=== PATIENT | female | born 2000 | race Caucasian/White ===

== ENCOUNTER → 2019-08-07 07:14 | Outpatient (BNVA) | payer BC, SELFPAY | PROVIDERS: Family Provider Family Medicine; PCP Family Medicine; Visit Provider Psychiatry & Neurology Psychiatry | DX: F32.5 Major depressive disorder, single episode, in full remission (principal); F40.10 Social phobia, unspecified; F44.5 Conversion disorder with seizures or convulsions | CPT/HCPCS: 99213 ==

== ENCOUNTER → 2019-11-29 08:01 | Outpatient (BNVA) | payer BC, SELFPAY | PROVIDERS: Family Provider Family Medicine; PCP Family Medicine; Visit Provider Psychiatry & Neurology Psychiatry | DX: F32.5 Major depressive disorder, single episode, in full remission (principal); F40.10 Social phobia, unspecified; F44.5 Conversion disorder with seizures or convulsions | CPT/HCPCS: 99213 ==

== ENCOUNTER → 2020-02-22 07:25 | Outpatient (BNVA) | payer BC, SELFPAY | PROVIDERS: Family Provider Family Medicine; PCP Family Medicine; Visit Provider Psychiatry & Neurology Psychiatry | DX: F32.5 Major depressive disorder, single episode, in full remission (principal); F44.5 Conversion disorder with seizures or convulsions; F40.10 Social phobia, unspecified | CPT/HCPCS: 99213 ==

== ENCOUNTER → 2020-03-26 11:48 | Outpatient (BNVA) | payer BC, SELFPAY | PROVIDERS: Family Provider Family Medicine; PCP Family Medicine; Visit Provider Specialist | DX: F44.5 Conversion disorder with seizures or convulsions (principal) | CPT/HCPCS: 99215 ==

== ENCOUNTER → 2020-05-15 08:04 | Outpatient (BNVA) | payer BC, SELFPAY | PROVIDERS: Family Provider Family Medicine; PCP Family Medicine; Visit Provider Psychiatry & Neurology Psychiatry | DX: F44.5 Conversion disorder with seizures or convulsions (principal); F40.10 Social phobia, unspecified; F32.5 Major depressive disorder, single episode, in full remission | CPT/HCPCS: 99213 ==

== ENCOUNTER → 2020-08-12 08:07 | Outpatient (BNVA) | payer BC, SELFPAY | PROVIDERS: Family Provider Family Medicine; PCP Family Medicine; Visit Provider Psychiatry & Neurology Psychiatry | DX: F44.5 Conversion disorder with seizures or convulsions (principal); F40.10 Social phobia, unspecified; F32.5 Major depressive disorder, single episode, in full remission | CPT/HCPCS: 99214 ==

== ENCOUNTER 2020-08-13 15:00 | Emergency (ER) | payer BC, SELFPAY ==
[2020-08-13 15:04] VITALS: BP 117/70; PULSE 77; RESP 18; TEMP 35.9; O2SAT 98; BMI 50.3
--- NOTE | 2020-08-13 15:08 | ECG_ITS ---
[facility] Test Date: 2020-08-13 Pat Name: Alecia Gunter Department: Room: Gender: Female Superintendent Pier: : 2000 Requested By: Alfred Salazar Order Number: [id number] Laura MD: JOSE ENRIQUE HERNANDEZ Measurements Intervals [place] Rate: 71 P: 19 RI: 135 QRS: -2 QRSD: 80 T: 13 QT: 390 QTc: 426 Interpretive Statements SINUS RHYTHM WITH MARKED SINUS ARRHYTHMIA LOW QRS VOLTAGE IN PRECORDIAL LEADS [QRS DEFLECTION < 1.0 mV IN CHEST LEADS] Compared to ECG 08/21/2017 01:29:22 Low QRS voltage now present Left-axis deviation no longer present Electronically Signed On 08-13-2020 20:18:35 CDT by JOSE ENRIQUE HERNANDEZ [id number]
--- NOTE | 2020-08-13 15:09 | ED_ITS ---
HPI - Seizure General: Chief Complaint: Seizure Stated Complaint: Seizure/ Hit head Time Seen by Provider: 08/13/20 15:04 Source: patient, family and RN notes reviewed Limitations: no limitations History of Present Illness: HPI Narrative: This patient is a 19-year-old female with a long history of conversion disorder and pseudoseizures presents to the emergency department with complaint of a pseudoseizure. Patient has multiple of these daily. Due to stress and other related issues. Patient and patient's significant other were having a conversation and that she started having a pseudoseizure. Lasted just a few seconds and had no postictal symptoms. Patient has significant other states that he is chronically happening and is on Zoloft for the same. Patient is followed by Dr. Li psychiatry for the same. Patient's had multiple evaluations related to the stop seizures including [facility]. They are chronic in nature and do not appear to be acute. Patient denies any significant stress but appears the patient every time she has a serious conversation will have some type of pseudoseizure activity. Good urine urine drug screen EKG will evaluate further further if needed. This but this does appear just to be related to stress and anxiety issues. Patient has had no loss of consciousness no tonic- clonic movements no bladder incontinence patient actually wishes to get up and go to the bathroom at this time. Onset (ago): day(s) (5) Associated symptoms: Deny chest pain, chills or fever(s) Review of Systems General: Reports: 10 or more systems reviewed and unremarkable except in HPI and below Const: Denies: fever(s) or chills Eyes: Denies: change in vision or blurry vision ENMT: Denies: throat pain, hoarseness or mouth pain Card: Denies: chest pain Resp: Denies: dyspnea, productive cough, non-productive cough, wheezing or pain on inspiration GI: Denies: abdominal pain, nausea or vomiting : Denies: flank pain, difficulty voiding, dysuria, urinary frequency, urinary urgency or urinary hesitancy Musc: Denies: neck pain, back pain, extremity pain, extremity swelling, joint pain, joint swelling, joint redness, joint warmth or limited range of motion Skin/Breast: Denies: rash, pruritus, erythema or skin tenderness Neuro: Reports: seizure-like activity; Denies: headache(s), numbness in extremities or weakness in extremities Psych: Reports: depression; Denies: anxiety PFSH ED PFSH: Medical History Major depressive disorder, single episode, in full remission No pertinent past medical history Denies diabetes, asthma, hypertension, seizures, DVT/PE PCP: Dr. Fiore Surgical History S/P nasal polypectomy Performed [place] [address] Razo in [place] S/P tonsillectomy and adenoidectomy At age 12 [address] De La Torre Family History Grandmother Diabetes maternal Thyroid condition maternal Family/Other Seizure disorder cousins Narcolepsy cousins Denies family history of Colon cancer Ovarian cancer Hyperlipidemia Breast cancer Hypertension Uterine cancer Stroke Social History Smoking and tobacco status: never smoked Alcohol intake: unknown Physical Exam Const: COMMON NORMALS: no acute distress, average body habitus, patient oriented x3, no limitations, healthy appearing, alert and well nourished HENMT: COMMON NORMALS: normocephalic, atraumatic, hearing grossly normal bilaterally, external ears normal, EAC's normal, TM's normal bilaterally, Normal external nose present, Normal nasal mucous membranes and turbinates present, moist oral mucous membranes, oropharynx normal, dentition normal and gingiva normal HEAD & SCALP: normocephalic and atraumatic NOSE: Normal external nose present and Normal nasal mucous membranes and turbinates present EXTERNAL EAR: Yes external ears normal EXTERNAL AUDITORY CANAL: EAC's normal TYMPANIC MEMBRANE: TM's normal bilaterally Neck/C-Spine: COMMON NORMALS: full ROM, no lymphadenopathy, supple, no meningeal signs, no JVD, Thyroid normal and No carotid bruits THYROID: Thyroid normal Chest: COMMONS NORMALS: normal inspection of the chest, normal palpation of entire chest wall, normal inspection of the breasts and normal palpation of the breasts Breast/axilla inspection: Yes normal inspection of the breasts BREAST/AXILLA PALPATION: Yes normal palpation of the breasts Resp: COMMON NORMALS: normal respiratory effort, No retractions, No use of acc essory muscles, clear to auscultation bilaterally and percussion normal AUSCULTATION: clear to auscultation bilaterally PERCUSSION: percussion normal Cardio: COMMON NORMALS: no JVD, regular rate, regular rhythm, S1 normal heart sound present, S2 normal heart sound present, No gallops present (Cardio), No clicks present (Cardio), No murmurs present (Cardio), No rub (Cardio) and Peripheral pulses 2+ throughout RATE: regular rate RHYTHM: regular rhythm HEART SOUNDS: S1 normal heart sound present and S2 normal heart sound present PERIPHERAL PULSES: Peripheral pulses 2+ throughout GI: COMMON NORMALS: Normal to inspection, nondistended, normoactive bowel sounds present, Soft to palpation, non-tender, No hepatosplenomegaly present, no masses and no bruits PALPATION: Yes Soft to palpation and Yes No hepatosplenomegaly present : COMMON NORMALS: Yes no CVA tenderness, Yes normal external appearance, Yes normal appearance of the vagina, Yes normal appearance of the cervix, Yes normal bimanual exam, Yes No adnexal tenderness and Yes no masses BLADDER/KIDNEY EXAM: Yes no CVA tenderness BIMANUAL EXAM - VAGINA & UTERUS: Yes normal bimanual exam Back/Pelvis: COMMON NORMALS: no CVA tenderness, thoracic and lumbar spine normal to inspection, no thoracic nor lumbar tenderness, thoraco-lumbar ROM normal and straight leg raise negative bilaterally Extremity: COMMON NORMALS: normal to inspection, full ROM, capillary refill normal, no joint enlargement, no clubbing, cyanosis or edema, no calf tenderness and no pedal edema Neuro: COMMON NORMALS: patient oriented x3 SENSORIUM/ORIENTATION: Yes alert MENINGEAL SIGNS: Yes no meningeal signs Course Reevaluation(s): Reevaluation #1: Patient is at her mental baseline with no signs of injury. Long history of pseudoseizures. Patient be discharged home with dad is to continue all home medications follow-up with psychiatry as instructed. Time: 15:52 Vital Signs: Vital signs: Vital Signs Temperature 96.7 F L 08/13/20 15:04 Pulse Rate 77 08/13/20 15:04 Respiratory Rate 18 08/13/20 15:04 Blood Pressure 117/70 08/13/20 15:04 Pulse Oximetry 98 08/13/20 15:04 MDM - Seizure Lab Data: Attestation: I reviewed the patient's lab results. Imaging Data^: CT Head: Attestation: I personally reviewed and interpreted this imaging study as follows: Radiologist's impression: Negative for acute findings EKG Data^: EKG 1: Attestation: I personally reviewed and interpreted this EKG as follows: EKG interpretation date: 08/13/20 EKG interpretation time: 15:26 Prior EKG tracings: not available for review Interpretation: Sinus rhythm nonspecific EKG changes heart rate 71 otherwise normal EKG Discharge Plan Discharge Patient Disposition: Home Clinical Impression: Conversion disorder with attacks or seizures Condition: Stable Prescriptions: No Action sertraline [Zoloft] 100 mg tablet 100 mg PO DAILY Qty: 30 RF: 2 Cryselle (28) 0.3-30 mg-mcg tablet 1 tab PO DAILY Qty: 84 RF: 3 Discharge Orders: Discharge ED (Routine); Ordered 08/13/20 Ordered By: Alfred Salazar Referrals: Pa Fiore MD [Primary Care Provider] - Discharge Diet: Advance as tolerated Discharge Activity: Resume usual activity Patient Instructions: Opioid Safety Activity Restrictions/Additional Instructions: Continue all home medications. Follow-up with your primary care physician in your your psychiatrist in 2 to 3 days as needed. Coding Level of Care Code ED Wood Router Hand for Chg Fwd Exam Comprehensive
--- NOTE | 2020-08-13 15:27 | CT_ITS ---
WS: [id number] CT scan of the head, 08/13/2020 Clinical Data: HEADACHE Comparison: CT head, 08/21/2017. DLP: 809.[address] scans at [facility] use at least one of these dose optimization techniques: automat ed exposure control; mA and/or kV adjustment per patient size (includes targeted exams where dose is matched to clinical indication); or iterative reconstruction. Findings: The ventricular system is normal without shift. No recent infarct or hemorrhage is seen. There are no abnormal intracerebral masses. The cerebellum and brainstem are not remarkable. Bony windows of the skull and skull base show no fractures or erosions. The mastoid air cells, international bank manager al auditory canals, sella turcica, intraorbital contents, and paranasal sinuses are unremarkable. CT/CT head wo con* [id number] Impression: Negative CT scan of the head
[2020-08-13 15:55] LABS: HCG Qualitative Urine. Negative (Negative)
[2020-08-13 16:12] VITALS: BP 112/68; PULSE 71; RESP 18; O2SAT 98
== END 2020-08-13 16:13 | disposition home or self-care (01) ==
PROVIDERS: Emergency Provider Emergency Medicine; PCP Family Medicine
DX: F44.5 Conversion disorder with seizures or convulsions (principal)
CPT/HCPCS: 70450; 81025; 93005; 99283

== ENCOUNTER → 2021-02-06 08:17 | Outpatient (BNVA) | payer BC, SELFPAY | PROVIDERS: PCP Family Medicine; Visit Provider Obstetrics & Gynecology | DX: Z01.419 Encounter for gynecological examination (general) (routine) without abnormal findings (principal) | CPT/HCPCS: 80061; 83036 ==

== ENCOUNTER 2022-02-23 07:06 | Outpatient (CLI) | payer BC, SELFPAY ==
--- NOTE | 2022-02-23 07:15 | MR_ITS ---
WS: [id number] MRI BRAIN WITHOUT CONTRAST HISTORY: Hyperacusis of left ear COMPARISON: CT head 08/13/2020 TECHNIQUE: Diffusion imaging, multiplanar T1, T2 and FLAIR imaging obtained. No evidence for acute infarct or hemorrhage. Lopez-white matter differentiation is normal. No remote or acute infarcts are volume loss. Ventricles and extra-axial spaces are normal. No inferior displacement of cerebellar tonsils. The sella turcica and pituitary gland are unremarkabl e. Additional high-resolution imaging through the internal auditory canals demonstrates no mass or ma ss effect. No enlargement of the 7th and 8th cranial nerves and normal course of the 5th cranial nerv e. Dural venous sinuses and [place] demonstrate no abnormality on this unenhanced studies. Paranasal sinuses: Clear. Mastoid air cells: Normal. Calvarium and scalp: Intact. MR/MR head wo con* [id number] IMPRESSION: 1. Unremarkable noncontrast MRI brain. 2. No signal abnormalities within the internal auditory canals or mastoid air cells. No evidence for mastoiditis.
== END 2022-02-23 07:07 | disposition home or self-care (01) ==
LOC: RAD 07:07
PROVIDERS: Visit Provider Otolaryngology
DX: H93.232 Hyperacusis, left ear (principal)
CPT/HCPCS: 70551

== ENCOUNTER 2022-07-31 23:26 | Emergency (ER) | payer BC, SELFPAY ==
[2022-07-31 23:44] VITALS: BP 119/76; PULSE 57; RESP 18; TEMP 36.8; O2SAT 99; BMI 43.0
[2022-08-01 00:30] VITALS: BP 102/64; PULSE 48; RESP 20; O2SAT 98
--- NOTE | 2022-08-01 00:31 | CTR_ITS ---
PROCEDURE INFORMATION: Exam: CT Head Without Contrast Exam date and time: 08/01/2022 12:46 AM Age: 21 years old Clinical indication: Injury or trauma; Blunt trauma (contusions or hematomas); Injury details: Seizure - fall hitting posterior head on ground. Headache all over, blurry vision; Additional info: Seizure, head inj TECHNIQUE: Imaging protocol: Computed tomography of the head without contrast. Radiation optimization: All CT scans at this facility use at least one of these dose optimization techniques: automated exposure control; mA and/or kV adjustment per patient size (includes targeted exams where dose is matched to clinical indication); or iterative reconstruction. REPORTING DATA: Count of CT and Cardiac NM exams in prior 12 months: This patient has received 0 known CTs and 0 known cardiac nuclear medicine studies in the 12 months prior to the current study. COMPARISON: MR head wo con* [id number] 02/23/2022 7:36 AM RADIATION DOSE METRICS: Total DLP (mGy-cm): 884.58 FINDINGS: Brain: Normal. No hemorrhage. Unremarkable white matter. No mass effect. Cerebral ventricles: No ventriculomegaly. Paranasal sinuses: Visualized sinuses are unremarkable. No fluid levels. Mastoid air cells: Visualized mastoid air cells are well aerated. Bones/joints: Unremarkable. No acute fracture. Soft tissues: Unremarkable. CT/CT head wo con* [id number] IMPRESSION: No acute intracranial abnormality.
[2022-08-01 01:04] LABS: Add Urine Microscopic? NO; Charge for UA Resulting for Rev
[2022-08-01 01:14] LABS: Bilirubin Urine Neg (Negative); Blood Urine Neg (Negative); Glucose Urine UA Norm (Normal); Ketones Urine Negative (Negative); Leukocyte Esterase Urine Negative (Negative); Nitrate Urine Negative (Negative); Protein Urine Neg (Negative); Urine Appearance Clear (CLEAR); Urine Color Yellow (Yellow); Urobilinogen Urine Neg (Negative); pH Urine 5 (5-7)
[2022-08-01 01:15] LABS: Basophils # 0.1 10^3/uL (0.0-0.1); Basophils % 0.8 %; Eosinophils # 0.1 10^3/uL (0.0-0.8); Eosinophils % 2.1 %; Hematocrit 43.8 % (37.0-47.0); Hemoglobin 13.4 g/dL (11.5-15.3); Lymphocytes # 2.7 10^3/uL (0.8-4.8); Lymphocytes % 42.8 %; Mean Corpuscular HGB Conc 30.6 g/dL (30.0-36.0); Mean Corpuscular Hemoglobin 25.3 pg (28.0-34.0); Mean Corpuscular Volume 82.6 fl (81-99); Mean Platelet Volume 10.8 fL (7.4-10.4); Monocytes # 0.7 10^3/uL (0.2-0.9); Monocytes % 11.1 %; Nucleated Red Blood Cells % 0 %; Platelet Count 279 10^3/cmm (130-400); Red Cell Distribution Width 14.4 % (12.1-15.1); White Blood Count 6.3 10^3/uL (4.0-10.0)
--- NOTE | 2022-08-01 01:19 | ECG_ITS ---
[facility] Test Date: 2022-08-01 Pat Name: Alecia Gunter Department: Room: Gender: Female Pattern Attendant: : 2000 Requested By: Shan Herrera Order Number: [id number] Sanchez MD: Julio Hogan M.D. Measurements Intervals [place] Rate: 54 P: 19 MT: 153 QRS: 2 QRSD: 82 T: 17 QT: 401 QTc: 381 Interpretive Statements SINUS BRADYCARDIA WITH SINUS ARRHYTHMIA POSSIBLE ANTERIOR MYOCARDIAL INFARCTION , OF INDETERMINATE AGE [30 ms Q WAVE IN V3/V4, OR R < 0.2 mV IN V4] Compared to ECG 08/13/2020 15:26:14 Myocardial infarct finding now present Sinus rhythm no longer present Electronically Signed On 08-01-2022 7:17:46 CDT by Julio Hogan M.D. [id number]
[2022-08-01 01:30] LABS: HCG, Serum Qual Negative (Negative)
[2022-08-01 01:33] LABS: Alanine Aminotransferase 30 U/L (0-33); Albumin Level 3.6 g/dL (3.5-5.2); Alkaline Phosphatase 49 U/L (35-105); Anion Gap 15.1 (5-19); Aspartate Amino Transferase 16 U/L (0-32); Blood Urea Nitrogen 9 mg/dL (6-20); Calcium 8.7 mg/dL (8.5-10.5); Carbon Dioxide 24 mmol/L (22-29); Chloride 102 mmol/L (98-107); Globulin 3.5 g/dL (1.3-4.6); Glomerular Filtration Rate 104.6 mL/min (90-130); Glucose 85 mg/dL (65-115); Magnesium 1.8 mg/dL (1.7-2.3); Osmolality Calculated 282 mOsm/kg (285-295); Phosphorus 3.6 mg/dL (2.5-4.5); Potassium 4.1 mmol/L (3.5-5.1); Sodium 137 mmol/L (136-145); Total Bilirubin 0.3 mg/dL (0.15-1.2); Total Protein 7.1 g/dL (6.6-8.7)
--- NOTE | 2022-08-01 02:04 | W.ED.SEIZURE ---
HPI - Seizure General: Chief Complaint: Seizure Stated Complaint: fall , hit head Time Seen by Provider: 08/01/22 00:20 History of Present Illness: HPI Narrative: 21-year-old female with a history of pseudoseizures. 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 She fell backwards striking her head. She has a headache. She has some blurred vision. It has improved significantly since just after the seizure. She does feel tired. complaint: seizure Onset (ago): hour(s) Description of Episode: loss of consciousness and tonic-clonic movement -: second(s) Witnessed: Yes - by Bystander Trauma: Yes Seizure History: Yes Place: Work Associated symptoms: Deny chest pain, chills, confusion, fever(s), rash, short of breath or weakness Treatments prior to arrival: none Review of Systems Const: Denies: fever(s) or chills Card: Denies: chest pain Resp: Denies: dyspnea GI: Denies: abdominal pain or vomiting Musc: Denies: neck pain Neuro: Reports: headache(s); Denies: numbness in extremities, weakness in extremities or confusion PFS ED PFSH: Medical History Major depressive disorder, single episode, in full remission No pertinent past medical history Denies diabetes, asthma, hypertension, seizures, DVT/PE PCP: Dr. Fiore Psychiatric care Surgical History S/P nasal polypectomy Per[place] [address] Razo in [place] S/P tonsillectomy and adenoidectomy At age 12 [address] De La Torre Family History Grandmother Diabetes maternal Thyroid condition maternal Family/Other Seizure disorder cousins Narcolepsy cousins Denies family history of Colon cancer Ovarian cancer Hyperlipidemia Breast cancer Hypertension Uterine cancer Stroke Social History Smoking and tobacco status: never smoked Alcohol intake: unknown Physical Exam Const: COMMON NORMALS: no acute distress and alert GENERAL APPEARANCE: cooperative; not ill appearing and not frail appearing HENMT: COMMON NORMALS: normocephalic, atraumatic and Normal external nose present HEAD & SCALP: normocephalic and atraumatic FACE & SINUS: normal facial exam and face symmetric NOSE: Normal external nose present Eye: COMMON NORMALS: Equal, round and reactive pupils present and EOMs intact bilaterally PUPIL: Yes Equal, round and reactive pupils present Neck/C-Spine: GENERAL: Yes trachea midline Chest: CHEST: Yes Symmetrical chest wall rise Resp: COMMON NORMALS: normal respiratory effort, No retractions, No use of accessory muscles and clear to auscultation bilaterally AUSCULTATION: clear to auscultation bilaterally Cardio: COMMON NORMALS: regular rate and regular rhythm RATE: regular rate and bradycardic RHYTHM: regular rhythm GI: COMMON NORMALS: Normal to inspection, nondistended, normoactive bowel sounds present Extremity: COMMON NORMALS: no pedal edema Neuro: MAGUI COMA SCALE: document GCS findings [place] coma scale eye opening: Spontaneous [place] coma scale verbal response: Orientated Magui coma scale motor response: Obey commands Magui coma scale total score: 15 SENSORIUM/ORIENTATION: Yes alert CRANIAL NERVES: Yes CN normal except as noted COORDINATION/BALANCE: [id number]-fq-azba test normal and fevq-cw-oyeb test normal SPEECH: speech normal SENSORY EXAM: Yes extremities (intact) MOTOR EXAM: Pronator motor function not present and Normal motor muscle tone present throughout COORDINATION: nhlhlc-fv-fion test normal and [id number]-ao-fbbk test normal Psych: COMMON NORMALS: speech normal SPEECH: Yes normal speech Skin: COMMON NORMALS: no rashes or lesions noted GENERAL SKIN EXAM: no rashes or lesions noted Course Vital Signs: Vital signs: Vital Signs Temperature 98.3 F 07/31/22 23:44 Pulse Rate 60 08/01/22 02:36 Respiratory Rate 18 08/01/22 02:36 Blood Pressure 111/67 08/01/22 02:36 Pulse Oximetry 98 08/01/22 02:36 Oxygen Delivery Me thod 08/01/22 00:30 MDM - Seizure MDM Narrative Medical decision making narrative: Normal neurological exam. Head CT is negative. Laboratory is not remarkable. Urinalysis is normal. EKG shows a sinus bradycardia with a rate of 55. There is a sinus arrhythmia. Q waves are present in V1 and 2. Patient and family informed of the results. Given her Q waves anteriorly, and bradycardia, 1 might consider Holter monitoring and/or echo as an outpatient in this instance. PCP follow-up. Lab Data 08/01/22 01:03 08/01/22 01:03 Labs: Radiology Impressions Head CT 08/01/22 00:31 IMPRESSION: No acute intracranial abnormality. Laboratory Results WBC 6.3 10^3/uL (4.0-10.0) 08/01/22 01:03 RBC 5.30 10^6/uL (4.1-5.3) 08/01/22 01:03 Hgb 13.4 g/dL (11.5-15.3) 08/01/22 01:03 Hct 43.8 % (37.0-47.0) 08/01/22 01:03 MCV 82.6 fl (81-99) 08/01/22 01:03 MCH 25.3 pg (28.0-34.0) L 08/01/22 01:03 MCHC 30.6 g/dL (30.0-36.0) 08/01/22 01:03 RDW 14.4 % (12.1-15.1) 08/01/22 01:03 Plt Count 279 10^3/cmm (130-400) 08/01/22 01:03 MPV 10.8 fL (7.4-10.4) H 08/01/22 01:03 Neut % (Auto) 43.0 % 08/01/22 01:03 Lymph % (Auto) 42.8 % 08/01/22 01:03 Young % (Auto) 11.1 % 08/01/22 01:03 Eos % (Auto) 2.1 % 08/01/22 01:03 Baso % (Auto) 0.8 % 08/01/22 01:03 Neut # (Auto) 2.70 10^3/uL (1.8-7.7) 08/01/22 01:03 Lymph # (Auto) 2.7 10^3/uL (0.8-4.8) 08/01/22 01:03 Young # (Auto) 0.7 10^3/uL (0.2-0.9) 08/01/22 01:03 Eos # (Auto) 0.1 10^3/uL (0.0-0.8) 08/01/22 01:03 Baso # (Auto) 0.1 10^3/uL (0.0-0.1) 08/01/22 01:03 Nucleated RBC % (auto) 0 % 08/01/22 01:03 Nucleated RBCs # 0.0 /100WBC 08/01/22 01:03 Sodium 137 mmol/L (136-145) 08/01/22 01:03 Potassium 4.1 mmol/L (3.5-5.1) 08/01/22 01:03 Chloride 102 mmol/L (98-107) 08/01/22 01:03 Carbon Dioxide 24 mmol/L (22-29) 08/01/22 01:03 Anion Gap 15.1 (5-19) 08/01/22 01:03 BUN 9 mg/dL (6-20) 08/01/22 01:03 Creatinine 0.7 mg/dL (0.5-0.9) 08/01/22 01:03 GFR Calculation 104.6 mL/min (90-130) 08/01/22 01:03 Glucose 85 mg/dL (65-115) 08/01/22 01:03 Calculated Osmolality 282 mOsm/kg (285-295) L 08/01/22 01:03 Calcium 8.7 mg/dL (8.5-10.5) 08/01/22 01:03 Phosphorus 3.6 mg/dL (2.5-4.5) 08/01/22 01:03 Magnesium 1.8 mg/dL (1.7-2.3) 08/01/22 01:03 Total Bilirubin 0.3 mg/dL (0.15-1.2) 08/01/22 01:03 AST 16 U/L (0-32) 08/01/22 01:03 ALT 30 U/L (0-33) 08/01/22 01:03 Alkaline Phosphatase 49 U/L (35-105) 08/01/22 01:03 Total Protein 7.1 g/dL (6.6-8.7) 08/01/22 01:03 Albumin 3.6 g/dL (3.5-5.2) 08/01/22 01:03 Globulin 3.5 g/dL (1.3-4.6) 08/01/22 01:03 HCG, Qual Negative (Negative) 08/01/22 01:03 Urine Color Yellow (Yellow) 08/01/22 00:44 Urine Appearance Clear (CLEAR) 08/01/22 00:44 Urine pH 5 (5-7) 08/01/22 00:44 Ur Specific [place] 1.010 (1.005-1.030) 08/01/22 00:44 Urine Protein Neg (Negative) 08/01/22 00:44 Urine Glucose (UA) Norm (Normal) 08/01/22 00:44 Urine Ketones Negative (Negative) 08/01/22 00:44 Urine Blood Neg (Negative) 08/01/22 00:44 Urine Nitrate Negative (Negative) 08/01/22 00:44 Urine Bilirubin Neg (Negative) 08/01/22 00:44 Urine Urobilinogen Neg mg/dL (Negative) 08/01/22 00:44 Ur Leukocyte Esterase Negative (Negative) 08/01/22 00:44 Discharge Plan Discharge Patient Disposition: Home Clinical Impression: Generalized seizure, Bradycardia Condition: Stable Prescriptions: No Action Cryselle (28) 0.3-30 mg-mcg tablet 1 tab PO DAILY Qty: 84 5RF Discharge Orders: Discharge ED (Routine); Ordered 08/01/22 Ordered By: Shan Martins Referrals: Pa Fiore MD [Primary Care Provider] - 1-3 days Patient Instructions: Nonepileptic Seizures (ED), Recurrent Seizures in Adults (ED) Activity Restrictions/Additional Instructions: Return for repeated episodes of seizure, mental status changes, other concerning symptoms. Follow-up with your doctor. Coding Level of Care Code ED Section Leader And Machine Setter for Nunu Moralez
[2022-08-01 02:36] VITALS: BP 111/67; PULSE 60; RESP 18; O2SAT 98
== END 2022-08-01 02:34 | disposition home or self-care (01) ==
PROVIDERS: Emergency Provider Emergency Medicine; PCP Family Medicine
DX: G40.409 Other generalized epilepsy and epileptic syndromes, not intractable, without status epilepticus (principal)
CPT/HCPCS: 70450; 80053; 81003; 83735; 84100; 84703; 85025; 93005; 99285

== ENCOUNTER 2022-09-10 10:41 | Outpatient (CLI) | payer BC, SELFPAY ==
--- NOTE | 2022-09-10 10:48 | USCV_ITS ---
Alecia Gunter Age: 21 Gender: F : 2000 Exam Date: 09/10/2022 11:14 Ordering Phys: Ofelia Fiore Technologist: Exam Location: [facility] [place] Indication: abnormal ekg BP: 120 / 70 HR: 57 Rhythm: Sinus Technical Quality: MEASUREMENTS (Male / Female) Normal Values 2D ECHO LV Diastolic Diameter PLAX 3.4 cm 4.2 - 5.9 / 3.9 - 5.3 cm LV Systolic Diameter PLAX 2.0 cm IVS Diastolic Thickness 1.1 cm 0.6 - 1.0 / 0.6 - 0.9 cm IVS Systolic Thickness 1.4 cm LVPW Diastolic Thickness 1.2 cm 0.6 - 1.0 / 0.6 - 0.9 cm LVPW Systolic Thickness 1.1 cm LVOT Diameter 2.0 cm LV Ejection Fraction 2D Teich 73.0 % LV Ejection Fraction MOD 2C 69.6 % LV Ejection Fraction 2C AL 68.9 % LA Diameter 3.2 cm IVC Diameter 1.7 cm M-MODE Aortic Annulus Diameter 3.0 cm LA Ao Ratio MM 1.4 MV E Point Septal Separation 0.9 cm DOPPLER AV Peak Velocity 157.0 cm/s LVOT Peak Velocity 109.0 cm/s AV Area Cont Eq vti 2.7 cm squared AV Area Cont Eq pk 2.2 cm squared MV Area PHT 5.0 cm squared Mitral E to A Ratio 2.5 MV E' Velocity 78.0 cm/s Mitral E to MV E' Ratio 7.6 Mitral E to LV E' Lateral Ratio 7.1 Mitral E to LV E' Septal Ratio 8.2 TR Peak Velocity 225.0 cm/s TR Peak Gradient 20.3 mmHg TV Peak E Velocity 83.0 cm/s Right Atrial Pressure 3.0 mmHg Pulmonary Artery Systolic Pressu 23.3 mmHg RV Acceleration Time 0.2 s FINDINGS Left Ventricle Normal left ventricular size, systolic function and wall thickness, with no regional wall motion abnormalities. Normal left ventricular wall thickness. Normal diastolic filling pattern. Left ventricular ejection fraction is estimated at 60 %. Right Ventricle The right ventricle is normal in size and function. Right Atrium The right atrium is normal in size. Left Atrium The left atrium is normal in size. Mitral Valve Structurally normal mitral valve without significant stenosis or prolapse. There is no mitral regurgitation. Aortic Valve Structurally normal aortic valve without significant sclerosis or stenosis. There is no aortic regurgitation. Tricuspid Valve Structurally normal tricuspid valve without significant stenosis or regurgitation. Pulmonary artery systolic pressure is normal. Pulmonic Valve Structurally normal pulmonic valve without significant stenosis. There is no pulmonic regurgitation. Pericardium Normal pericardium without effusion. Aorta Normal ascending aorta dimension. IVC The inferior vena cava appears normal. CONCLUSIONS Normal transthoracic echocardiogram. There are no prior echocardiogram studies to compare. Dr. Reyes Mena MD (Electronically Signed) Final Date: 10 Sep 2022 14:38 S
== END 2022-09-10 10:42 | disposition home or self-care (01) ==
LOC: RAD 10:44
PROVIDERS: PCP Physician Assistant; Visit Provider Physician Assistant
DX: R00.1 Bradycardia, unspecified (principal)
CPT/HCPCS: 93306

== ENCOUNTER → 2024-03-14 12:00 | Outpatient (BNVA) | payer BC, MEDICAID, SELFPAY | PROVIDERS: PCP Physician Assistant; Visit Provider Nurse Practitioner Women's Health | DX: Z01.419 Encounter for gynecological examination (general) (routine) without abnormal findings (principal) | CPT/HCPCS: 82306; 82465; 83036; 83718; 83721; 84443 ==

== ENCOUNTER → 2024-06-18 07:55 | Outpatient (BNVA) | payer BC, MEDICAID, SELFPAY | PROVIDERS: PCP Physician Assistant; Visit Provider Nurse Practitioner Women's Health | DX: E55.9 Vitamin D deficiency, unspecified (principal) | CPT/HCPCS: 82306 ==

== ENCOUNTER → 2025-03-19 09:53 | Outpatient (BNVA) | payer MEDICAID, SELFPAY | PROVIDERS: PCP Physician Assistant; Visit Provider Nurse Practitioner Women's Health | DX: Z01.419 Encounter for gynecological examination (general) (routine) without abnormal findings (principal) | CPT/HCPCS: 80053; 80061; 82306; 83036; 84443; 85025 ==